=== PATIENT | male | born 1990 | race Two or more races ===

== ENCOUNTER 2017-03-11 09:00 | Emergency (ER) | payer MEDICAID ==
[~2017-03-11] VITALS: Ht 172.7 cm; Wt 87.0 kg
[~2017-03-11 09:00] MED LIST: IBUPROFEN
[2017-03-11 09:02] VITALS: Ht 172.7 cm; Wt 87.0 kg
[2017-03-11] MEDS ORDERED: ONDANSETRON 4 MG INJ IV STA ×2 (09:17→09:58)
[2017-03-11] MEDS ORDERED: morphine 4 MG/ML VIAL IV STA (09:17)
[2017-03-11] MEDS ORDERED: SOD CHLORIDE 0.9% 1,000 ML IV STA (09:17)
--- NOTE | 2017-03-11 09:21 | ERD ---
ER Documentation Chief Complaint Date/Time DATE: 03/11/17 TIME: 09:18 Chief Complaint pt bib self with right sided flank pain starting at 6am, HPI Otherwise healthy 26-year-old male presents emergency department for complaints of right lower quadrant abdominal pain which woke him up from his sleep and has gradually worsened this morning. Patient reports a constant 10 out of 10 sharp pain in the right flank which radiates to the right abdomen. Patient notes associated vomiting 2. He denies any fever but reports chills. He denies diarrhea, dysuria, hematuria. Patient has not attempted to treat his symptoms with any pain medicine this far. He denies any history of similar symptoms. ROS All systems reviewed and are negative except as per history of present illness. Medications Home Meds Active Scripts Hydrocodone/Acetaminophen ([place] 5-325 Tablet) 1 Each Tablet, 1 EACH PO Q8, #7 TAB Prov:TASHA PITTMAN PA-C 03/11/17 Tamsulosin Hcl* (Flomax*) 0.4 Mg Cap.er.24h, 0.4 MG PO BID for 7 Days, CAP Prov:TASHA PITTMAN PA-C 03/11/17 Naproxen* (Naprosyn*) 500 Mg Tablet, 500 MG PO BID Y for PAIN AND/OR INFLAMMATION, #30 TAB Prov:TASHA PITTMAN PA-C 03/11/17 Reported Medications [Ibuprofen] TAB No Conflict Check 03/12/10 Allergies Allergies: Coded Allergies: No Known Drug Allergy (Verified Allergy, Mild, 03/12/10) PMhx/Soc Medical and Surgical Hx: pt denies Medical Hx, pt denies Surgical Hx History of Surgery: No Anesthesia Reaction: Yes Hx Neurological Disorder: No Hx Respiratory Disorders: Yes (BRONCHITIS) Hx Cardiac Disorders: No Hx Psychiatric Problems: No Hx Miscellaneous Medical Probl: No Hx Alcohol Use: No Hx Substance Use: No Hx Tobacco Use: No Smoking Status: Never smoker Physical Exam Vitals Vital Signs Date Time Temp Pulse Resp B/P Pulse Ox O2 Delivery O2 Flow Rate FiO2 03/11/17 09:02 97.9 70 16 131/92 100 Physical Exam Const: Well-developed, well-nourished, in no acute distress Head: Atraumatic Neck: Full range of motion..~ No meningismus. Resp: Clear to auscultation bilaterally Cardio: Regular rate and rhythm, no murmurs Abd: Soft, mild right lower quadrant tenderness to palpation, no rebound tenderness, non distended. Normal bowel sounds Skin: No petechiae or rashes Back: No midline or flank tenderness Ext: No cyanosis, or edema Neur: Awake and alert Psych: Normal Mood and Affect Result Diagram: 03/11/17 0932 03/11/17 0932 Results 24 hrs Laboratory Tests Test 03/11/17 09:32 White Blood Count 14.110^3/ul Red Blood Count 5.8210^6/ul Hemoglobin 16.3g/dl Hematocrit 48.5% Mean Corpuscular Volume 83.3fl Mean Corpuscular Hemoglobin 28.0pg Mean Corpuscular Hemoglobin Concent 33.6g/dl Red Cell Distribution Width 12.4% Platelet Count 29273^3/UL Mean Platelet Volume 11.6fl Neutrophils % 76.7% Lymphocytes % 16.4% Monocytes % 6.0% Eosinophils % 0.3% Basophils % 0.2% Nucleated Red Blood Cells % 0.0/100WBC Neutrophils # (Manual) 10.810^3/ul Lymphocytes # 2.310^3/ul Monocytes # 0.810^3/ul Eosinophils # 0.010^3/ul Basophils # 0.010^3/ul Nucleated Red Blood Cells # 0.010^3/ul Urine Color YELLOW Urine Clarity SLIGHTLY CLOUDY Urine pH 7.0 Urine Specific [place] 1.033 Urine Ketones NEGATIVEmg/dL Urine Nitrite NEGATIVEmg/dL Urine Bilirubin NEGATIVEmg/dL Urine Urobilinogen 1+mg/dL Urine Leukocyte Esterase NEGATIVELeu/ul Urine Microscopic RBC > 182/HPF Urine Microscopic WBC 0/HPF Urine Calcium Oxalate Crystals MODERATE/HPF Urine Mucus MANY/HPF Urine Hemoglobin 3+mg/dL Urine Glucose NEGATIVEmg/dL Urine Total Protein 2+mg/dl Sodium Level 141mmol/L Potassium Level 3.6mmol/L Chloride Level 99mmol/L Carbon Dioxide Level 25mmol/L Anion Gap 21 Blood Urea Nitrogen 10mg/dl Creatinine 0.92mg/dl Glucose Level 127mg/dl Calcium Level 9.6mg/dl Total Bilirubin 0.4mg/dl Direct Bilirubin 0.00mg/dl Indirect Bilirubin 0.4mg/dl Aspartate Amino Transf (AST/SGOT) 28IU/L Alanine Aminotransferase (ALT/SGPT) 37IU/L Alkaline Phosphatase 91IU/L Total Protein 8.1g/dl Albumin 4.8g/dl Globulin 3.30g/dl Albumin/Globulin Ratio 1.45 Lipase 64U/L Current Medications Medications (Trade) Dose Ordered Sig/Tracy Route PRN Reason Start Time Stop Time Status Last Admin Dose Admin Sodium Chloride (NS) 1,000 ml @ 1,000 mls/hr Q1H STAT IV 03/11/17 09:17 03/11/17 10:16 DC 03/11/17 09:31 Morphine Sulfate (morphine) 4 mg ONCE STAT IV 03/11/17 09:17 03/11/17 09:19 DC 03/11/17 09:30 Ondansetron HCl (Zofran Inj) 4 mg ONCE STAT IV 03/11/17 09:17 03/11/17 09:19 DC 03/11/17 09:30 Ketorolac Tromethamine (Toradol) 30 mg ONCE STAT IV 03/11/17 09:58 03/11/17 09:59 DC 03/11/17 10:12 Ondansetron HCl (Zofran Inj) 4 mg ONCE STAT IV 03/11/17 09:58 03/11/17 09:59 DC IV Flush 10 ml 10 ml STK-MED ONCE .ROUTE 03/11/17 10:55 03/11/17 10:56 DC Sodium Chloride (NS) 100 ml @ ud STK-MED ONCE .ROUTE 03/11/17 10:55 03/11/17 10:56 DC Iohexol (Omnipaque 300mg/ ml) 150 ml STK-MED ONCE .ROUTE 03/11/17 10:55 03/11/17 10:56 DC Procedures/MDM PROCEDURE: CT Abdomen and pelvis with contrast CLINICAL INDICATION: Right flank pain TECHNIQUE: Spiral CT images through the abdomen and pelvis without administration of oral and during intravenous administration of 100 cc of Omnipaque-300 contrast material. Multiplanar reconstructions. The total exam CTDI equals 14.82 mGy and the total exam DLP equals 822.73 mGy-cm. One or more of the following dose reduction techniques were used: automated exposure control , adjustment of the mA and/or kV according to patient size, or use of iterative reconstruction technique. COMPARISON: None. FINDINGS: Slight atelectasis of the lung bases is seen. No pleural effusion is seen. . The liver, spleen, adrenal glands and pancreas are normal in appearance. There is no evidence of cholelithiasis or biliary ductal dilatation. The kidneys are normal in size and contour. There is mild right hydroureternephrosis and decreased enhancement. 2 mm calculus is seen in the bladder on the right, image 155. The aorta is normal in caliber. There is no evidence for bowel obstruction, free air, free fluid or abscess. Enlarged right lower quadrant mesenteric lymph nodes are seen. The pelvic organs are unremarkable. The osseous structures are intact. IMPRESSION: 2 mm bladder calculus near the UVJ and mild right hydroureteronephrosis. Nonspecific enlarged right lower quadrant mesenteric lymph nodes. RPTAT: HCNS Physician Parish Date Time Electronically viewed and signed by Physician Parish on 03/11/2017 11: 16 CS/ CC: TASHA PITTMAN PA-C This is an otherwise healthy 26-year-old male who presents with new onset right flank pain which radiates to his right abdomen since this morning. Patient nontoxic upon arrival. Vital signs reviewed. Patient afebrile, non-tachycardic , normotensive and non-hypoxic upon arrival. Physical exam with evidence of mild right flank tenderness as well as mild lower quadrant tenderness to palpation. Patient without any rebound tenderness or peritoneal signs. Patient received a bolus of fluids as well as pain and nausea medication while in the emergency department and reported significant improvement of pain. CBC showed no evidence of systemic infection or severe anemia. CMP showed no evidence of electrolyte abnormalities, severe acidosis, alkalosis , renal failure, or liver disease. Lipase showed no evidence of acute pancreatitis. UA showed of acute hematuria without evidence of nitrites, leukocyte esterase or other bacteremia. CT of the abdomen with evidence of a 2 mm bladder calculus near the UVJ and mild right hydroureter nephrosis. Mesenteric lymph nodes were also seen in the right lower quadrant. The appendix was not noted on the report so I called to have the physician Dr. Nata Peng reviewed the images and write an addendum. Report pending addendum. History and physical exam consistent with a 2 mm calculus seen in the bladder with some mild right hydronephrosis however patient does not exhibit any evidence of renal failure. At this time low suspicion for abdominal aortic aneurysm, acute appendicitis, cholecystitis, pancreatitis, bowel obstruction. Patient will receive anti-inflammatory medication and instructed to follow-up with his primary care. Patient instructed to return to the emergency department 8-12 hours if symptoms do not improve or should worsen. A repeat abdominal exam was performed prior to patient's discharge patient did not exhibit any abdominal tenderness to palpation. There is no McBurney point tenderness or rebound tenderness. Patient well-appearing and reports significant improvement of pain symptoms at time of discharge. Based on patient's history of present illness and physical examination the decision was made to discharge. The patient was re-evaluated after ED treatment and stabilizing measures, and symptoms have improved. There is no evidence of life threatening injuries or illnesses at this time. On re-examination, patient resting in no distress, stable vital signs, reports feeling better and safe for discharge with outpatient follow up with PMD in 1-2 days. Patient given return precautions. Mother and patient expressed understanding of and agreement with plan. Departure Diagnosis: Primary Impression: Flank pain Additional Impressions: Bladder calculus Nausea & vomiting Vomiting type: unspecified Vomiting Intractability: non-intractable Qualified Code: R11.2 - Non-intractable vomiting with nausea, unspecified vomiting type TASHA PITTMAN PA-C Mar 11, 2017 09:21
[2017-03-11 09:55] LABS: BASOPHILS % 0.2 % (0.0-2.0); EOSINOPHILS % 0.3 % (0.0-7.0); HEMATOCRIT 48.5 % (42.0-52.0); HEMOGLOBIN 16.3 g/dl (14.0-18.0); LYMPHOCYTES # 2.3 10^3/ul (0.8-2.9); LYMPHOCYTES % 16.4 % (15.0-51.0); MEAN CORPUSCULAR HGB CONC 33.6 g/dl (32.0-37.0); MEAN CORPUSCULAR VOLUME 83.3 fl (82.0-101.0); MEAN PLATELET VOLUME 11.6 fl (7.4-10.4); MONOCYTE # 0.8 10^3/ul (0.3-0.9); NEUTROPHILS % 76.7 % (39.0-77.0); PLATELET COUNT 207 10^3/UL (140-415); RED BLOOD COUNT 5.82 10^6/ul (4.70-6.10); RED CELL DISTRIBUTION WIDTH 12.4 % (11.5-14.5); WHITE BLOOD COUNT 14.1 10^3/ul (4.8-10.8)
[2017-03-11] MEDS ORDERED: KETOROLAC 30 MG INJ IV STA (09:58)
[2017-03-11 10:07] LABS: ADD UMIC YES; UR ASCORBIC ACID NEGATIVE (NEGATIVE); UR BILIRUBIN (Dip) NEGATIVE (NEGATIVE); UR BLOOD (Dip) 3+ mg/dL (NEGATIVE); UR CLARITY SLIGHTLY CLOUDY (CLEAR); UR COLOR YELLOW (YELLOW); UR GLUCOSE (Dip) NEGATIVE (NEGATIVE); UR KETONES (Dip) NEGATIVE (NEGATIVE); UR LEUKOCYTE ESTERASE (Dip) NEGATIVE Leu/ul (NEGATIVE); UR MUCUS MANY /HPF (NONE SEEN); UR NITRITE (Dip) NEGATIVE (NEGATIVE); UR RBC > 182 /HPF (0-5); UR SPECIFIC GRAVITY (Dip) 1.033 (1.003-1.030); UR TOTAL PROTEIN (Dip) 2+ mg/dl (NEGATIVE); UR UROBILINOGEN (Dip) 1+ mg/dL (NEGATIVE)
[2017-03-11 10:11] LABS: ALBUMIN 4.8 g/dl (3.3-4.9); ALBUMIN/GLOBULIN RATIO 1.45; BILIRUBIN,INDIRECT 0.4 mg/dl (0-1.1); BILIRUBIN,TOTAL 0.4 mg/dl (0.2-1.3); CALCIUM 9.6 mg/dl (8.4-10.2); CREATININE 0.92 mg/dl (0.61-1.24); POTASSIUM 3.6 mmol/L (3.5-5.1); TOTAL PROTEIN 8.1 g/dl (6.1-8.1)
[2017-03-11] MEDS ORDERED: IOHEXOL 300MG/ML 150 ML BTL ONE (10:55)
[2017-03-11] MEDS ORDERED: SOD CHLORIDE 0.9% 100 ML ONE (10:55)
--- NOTE | 2017-03-11 11:16 | RADRPT ---
AMENDMENT: 03/11/2017 2:43:23 PM Nata Peng M.D. Addendum: The appendix is normal. PROCEDURE: CT Abdomen and pelvis with contrast CLINICAL INDICATION: Right flank pain TECHNIQUE: Spiral CT images through the abdomen and pelvis without administration of oral and duri ng intravenous administration of 100 cc of Omnipaque-300 contrast material. Multiplanar reconstruct ions. The total exam CTDI equals 14.82 mGy and the total exam DLP equals 822.73 mGy-cm. One or more of the following dose reduction techniques were used: automated exposure control, adjustment of the mA and/or kV according to patient size, or use of iterative reconstruction technique. COMPARISON: None. FINDINGS: Slight atelectasis of the lung bases is seen. No pleural effusion is seen. . The liver, spleen, adrenal glands and pancreas are normal in appearance. There is no evidence of ch olelithiasis or biliary ductal dilatation. The kidneys are normal in size and contour. There is mil d right hydroureternephrosis and decreased enhancement. 2 mm calculus is seen in the bladder on the right, image 155. The aorta is normal in caliber. There is no evidence for bowel obstruction, fr ee air, free fluid or abscess. Enlarged right lower quadrant mesenteric lymph nodes are seen. The pe lvic organs are unremarkable. The osseous structures are intact. IMPRESSION: 2 mm bladder calculus near the UVJ and mild right hydroureteronephrosis. Nonspecific enlarged right lower quadrant mesenteric lymph nodes. RPTAT: HCNS Physician Parish Date Time Electronically viewed and signed by Physician Parish on 03/11/2017 11:44 CS/
[2017-03-11] MEDS ORDERED: TAMS-14 PO (11:38)
[2017-03-11] MEDS ORDERED: NAPR-260 PO (11:38)
[2017-03-11] MEDS ORDERED: HYDR-906 PO (11:38)
== END 2017-03-11 12:00 | disposition home or self-care (01) ==
LOC: FTE 09:00
DX: R10.31 Right lower quadrant pain (principal); N21.0 Calculus in bladder; R11.2 Nausea with vomiting, unspecified
CPT/HCPCS: 36415; 74177; 80053; 81001; 83690; 85025; 96374; 96375; J1885; J2270; J2405; J7030; Q9967; Z7502; Z7610